=== PATIENT | female | born 1960 | race Caucasian/White ===

== ENCOUNTER → 2023-09-16 18:15 | Outpatient (REF) | payer OTHER, SELFPAY | LOC: WDC 18:15 | PROVIDERS: ATTENDING PHYSICIAN Obstetrics & Gynecology; FAMILY PHYSICIAN Family Medicine | DX: Z12.31 Encounter for screening mammogram for malignant neoplasm of breast (principal) | CPT/HCPCS: 77063; 77067 ==

== ENCOUNTER → 2024-05-16 06:38 | Outpatient (REF) | payer OTHER, SELFPAY | LOC: RAD 06:38 | PROVIDERS: ATTENDING PHYSICIAN Family Medicine | DX: K76.9 Liver disease, unspecified (principal); R94.5 Abnormal results of liver function studies | CPT/HCPCS: 76700 ==